=== PATIENT | female | born 1985 | race Caucasian/White ===

== ENCOUNTER → 2022-02-11 11:59 | Outpatient (CLI) | payer OTHER, SELFPAY ==
--- NOTE | 2022-02-11 12:10 | XR_ITS ---
FINAL REPORT CLINICAL HISTORY: LUMBAR RADICULOPATHY, LUMBAR REGION FINDINGS: LUMBAR SPINE. Three views demonstrate no acute fracture. There is 40% loss of height of the L1 vertebra anteriorly. There are small osteophytes posteriorly at L1-2. There is no malalignment. IMPRESSION: Loss of anterior height of the L1 vertebra with small osteophytes as above. Reviewed, Interpreted and Dictated by Severiano Alvarez MD Transcribed by Cely Laws Authenticated and [facility]
== END ==
PROVIDERS: Visit Provider Nurse Practitioner Family
DX: M54.16 Radiculopathy, lumbar region (principal)
CPT/HCPCS: 72100

== ENCOUNTER → 2022-04-25 12:02 | Outpatient (CLI) | payer OTHER, SELFPAY ==
[2022-04-25 12:58] LABS: Basophils # 0.1 K/mm3 (0-0.2); Basophils % 0.9 % (0.1-2.0); Eosinophils # 0.3 K/mm3 (0.0-0.4); Eosinophils % 3.5 % (0.1-12.0); Hematocrit 43.7 % (37.0-47.0); Hemoglobin 14.4 g/dL (12.2-16.2); Lymphocytes # 1.8 K/mm3 (0.7-4.5); Lymphocytes % 21.1 % (10-50); Mean Corpuscular Hemoglobin 28.3 pg (27.0-31.2); Mean Corpuscular Volume 85.9 fl (81-99); Monocytes # 0.4 K/mm3 (0.1-1.0); Monocytes % 4.9 % (1.7-9.3); Neutrophils # 5.8 K/mm3 (1.8-7.8); Neutrophils % 69.6 % (37.0-80.0); Platelet Count 310 K/mm3 (142-424); Red Blood Count 5.08 M/mm3 (4.20-5.40); Red Cell Distribution Width 14.2 % (11.5-17.5); White Blood Count 8.4 K/mm3 (4.8-10.8)
[2022-04-25 13:41] LABS: Chloride 103 mmol/L (98-107); Sodium 138 mmol/L (136-145)
[2022-04-25 13:42] LABS: Potassium 4.4 mmoL/L (3.5-5.1)
[2022-04-25 13:44] LABS: Alanine Aminotransferase 34 U/L (12-78); Alkaline Phosphatase 105 U/L (38-126); Amylase 61 U/L (30-110); Anion Gap 16.4 mEq/L (5-15); Aspartate Amino Transferase 47 U/L (14-36); Bilirubin,Total 0.6 mg/dl (0.2-1.3); Blood Urea Nitrogen 5 mg/dl (7-17); Calcium 8.8 mg/dl (8.4-10.2); Carbon Dioxide 23 mmol/L (22.0-30.0); Estimated Glomerular Filt Rate 94 ml/min (>60); GFR (African American) 113 ML/MIN (>60); Glucose 91 mg/dl (74-100); Lipase 81 U/L (23-300)
[2022-04-25 13:45] LABS: Albumin Level 4.3 g/dl (3.5-5.0); Albumin/Globulin Ratio 1.3 (1.1-1.8); Globulin 3.2 g/dL (1.3-3.2); Total Protein,Serum 7.5 g/dl (6.3-8.2)
== END ==
PROVIDERS: PCP Nurse Practitioner Family; Visit Provider Nurse Practitioner Family
DX: R10.10 Upper abdominal pain, unspecified (principal); R19.7 Diarrhea, unspecified
CPT/HCPCS: 36415; 80053; 82150; 83690; 85025

== ENCOUNTER → 2022-09-24 10:58 | Outpatient (POV) | payer OTHER, SELFPAY ==
[2022-09-24 12:01] VITALS: BP 156/89; PULSE 86; RESP 18; O2SAT 98; BMI 42.3
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
== END ==
PROVIDERS: PCP Internal Medicine Adolescent Medicine; Visit Provider Nurse Practitioner Family
DX: M54.16 Radiculopathy, lumbar region (principal); M54.2 Cervicalgia; M54.50 Low back pain, unspecified; Z79.899 Other long term (current) drug therapy
CPT/HCPCS: 99202; G0463

== ENCOUNTER 2022-10-20 11:02 | Day surgery (SDC) | payer OTHER, SELFPAY ==
[2022-10-20 11:18] VITALS: BP 158/94; PULSE 106; RESP 18; TEMP 36.1; O2SAT 96; BMI 42.2
[2022-10-20 11:56] VITALS: BP 153/99; PULSE 92; RESP 18; O2SAT 97
[2022-10-20 11:57] VITALS: BP 153/99; PULSE 92; RESP 18; O2SAT 97
[2022-10-20 12:10] VITALS: BP 142/84; PULSE 83; RESP 18; O2SAT 96
--- NOTE | 2022-10-20 12:41 | P.PCN_ITS ---
Procedure Date: 10/20/22 Time: 11:50 Anesthesiologist:: Darian Mann CRNA Complications:: None Pre-procedure Diagnosis:: Degenerative disc disease cervical spine multilevels. Cervical radiculopathy Post-procedure Diagnosis:: Same Indications for Procedure:: This patient is a pleasant 37-year-old female comes our clinic today for her initial cervical epidural steroid injection with us. Patient has had cervical epidural steroid injection in the past with 4 to 6 weeks of moderate relief in her cervical neck pain as well as bilateral shoulder and arm radicular symptoms. She rates her pain 02/08 Procedure Details:: Procedure:Cervical epidural steroid injection Informed consent was obtained and the risks and benefits of the procedure were explained to the patient. The patient was taken to the procedure room and noninvasive monitors placed, including noninvasive blood pressure cuff and pulse oximeter. The neck was prepped using Chloraprep as a cleansing solution. The C6- C7 interspace was viewed using fluroscopy. The skin and subcutaneous tissues were anesthetized using lidocaine 1.5% and a 25-gauge needle. After this an 18- gauge Touhy epidural needle was placed into the C6-C7 interspace under fluroscopy guidance and advanced using loss of resistance to air until the epidural space was encountered. After confirmation of needle placement in the epidural space using contrast dye, a solution containing normal saline, 2 mL and Depo-Medrol 80 mg was incrementally injected into the cervical epidural space.~ The patient tolerated the procedure well with no complications. The patient was observed in the Pain Clinic and then discharged home neurologically intact. Plan and Disposition:: Patient was discharged without incident.
== END 2022-10-20 12:10 | disposition home or self-care (01) ==
LOC: SC.PAINP 11:04
PROVIDERS: PCP Internal Medicine Adolescent Medicine; Visit Provider Nurse Anesthetist, Certified Registered
DX: M50.123 Cervical disc disorder at C6-C7 level with radiculopathy (principal)
CPT/HCPCS: 62321; J1040; Q9966

== ENCOUNTER → 2022-11-26 11:33 | Outpatient (POV) | payer OTHER, SELFPAY ==
[2022-11-26 11:44] VITALS: BP 145/91; PULSE 93; RESP 18; O2SAT 98; BMI 40.8
--- NOTE | 2022-11-26 11:53 | EXP.PAIN.SOA ---
[facility] Pain Management SOAP Note Subjective:: Patient is a pleasant 37-year-old female who presents today for follow-up of cervical epidural steroid injection at C6-C7 on 10/20/2022. We are currently treating the patient for degenerative disc disease of cervical spine multilevels with cervical radiculopathy symptoms, low back pain. Today she rates her pain a 3 out of 10.? She states she has had at least 75% improvement following this injection in her neck and feels like it still continuing to provide relief. She does state that she now notices that her low back pain is more bothersome. She does describe this as a aching, throbbing sensation that is worse with increased activity.? She states her back pain is worse with lifting or going upstairs or motions such as bending and twisting.? Her pain affects her ability to perform activities of daily living such as cooking or cleaning or doing activities around her home such as working on her chicken coop.? she has tried heat and ice along with Voltaren with little improvement.? She does use Tylenol and meloxicam with some improvement. She has had recent physical therapy however minimal relief was given. Patient is currently managed with gabapentin 300 mg 3 times a day from her primary care doctor's office.? Patient denies any side effects from this medication.? Her Aroldo is [id number].? Its been reviewed and appropriate. Review of Systems: General: No recent weight changes, no fever, no sleep disturbances Respiratory: No cough, no shortness of air, no recurring pulmonary infections Cardiovascular/peripheral vascular: No chest pain, no palpitations, no edema, no shortness of breath Gastrointestinal: No new onset incontinence, normal bowel movements reported Genitourinary: No new onset incontinence Musculoskeletal: Low back pain Psychiatric: [Normal mood/affect] Neurological: [Denies weakness in extremities], [denies balance issues] Objective:: Physical Exam: General: Alert and oriented x3, no acute distress, pleasant and cooperative Lungs: Respirations even and unlabored, symmetrical chest expansion Eyes: PERRL Musculoskeletal: Flexion and extension of lumbar [spine] somewhat guarded secondary to pain, [antalgic gait noted] positive Kemps test Neurological: Speech clear, no gross sensory deficit [facility] imaging 07/04/2022 MR lumbar spine without contrast L1-2: Mild disc space narrowing, disc desiccation, anterior spurring, and a circumferential disc bulge, mild kyphosis, a small posterior annular fissure, Schmorl's nodes and minimal marrow reaction are present. No spinal stenosis or neural foraminal encroachment. L2-3 and L3-4: Negative L4-5: Mild disc space narrowing, disc desiccation, posterior annular fissure, circumferential disc bulge, mild facet hypertrophy are present. Mild bilateral neural foraminal narrowing with minimal narrowing of the thecal sac L5-S1: L5 has a transitional characteristics and therefore, mild disc space narrowing is present. No paravertebral soft tissue mass Assessment:: Degenerative disc disease of cervical and lumbar spine with cervical and lumbar radiculopathy symptoms, lumbar facet arthropathy Plan:: Patient is experiencing significant pain in her low back with limited range of motion. She had a positive Kemps test and cannot tolerate activities such as bending, twisting and lifting. I have discussed with the patient that she may benefit from a medial branch block of her lumbar spine. Risk and benefits were discussed with the patient and she would like to proceed forward with this plan of care. Patient is not on any blood thinners. Patient will be scheduled for a medial branch block of her lumbar spine bilaterally of L1-2 and L4-5. Patient has been instructed to contact the clinic with any concerns before the next appointment. Dr. Webber has reviewed this note and agrees with this plan of care. This note was dictated using voice recognition software and make contain errors or omis
== END ==
PROVIDERS: PCP Internal Medicine Adolescent Medicine; Visit Provider Nurse Practitioner Family
DX: M50.123 Cervical disc disorder at C6-C7 level with radiculopathy (principal); M51.16 Intervertebral disc disorders with radiculopathy, lumbar region; M47.26 Other spondylosis with radiculopathy, lumbar region
CPT/HCPCS: 99212; G0463

== ENCOUNTER → 2023-01-13 11:26 | Outpatient (POV) | payer OTHER, SELFPAY ==
--- NOTE | 2023-01-13 12:10 | EXP.PAIN.SOA ---
[facility] Pain Management SOAP Note Subjective:: Patient is a pleasant 37-year-old female who presents today for follow-up. We are currently treating the patient for degenerative disc disease of cervical and lumbar spine with cervical and lumbar radiculopathy symptoms, low back pain, lumbar facet arthropathy. Today she rates her pain a 5 out of 10. She states that she still has gotten some improvement of her cervical epidural that she had back in September however she has noticed worsening pain into her low back. She states from our last visit she had to reschedule her injection and it is been moved to later this month. Patient denies any new trauma or injury. Patient denies any change location or type of pain she experiences. Patient does state her pain is an aching, throbbing sensation that is worse with increased activity and does affect her ability perform activities of daily living such as cooking and cleaning. Her Aroldo is pending. She is currently managed with gabapentin 300 mg 3 times a day from her primary care doctor. She does continue to use Tylenol and meloxicam along with heat and ice and Voltaren with some improvement. Review of Systems: General: No recent weight changes, no fever, no sleep disturbances Respiratory: No cough, no shortness of air, no recurring pulmonary infections Cardiovascular/peripheral vascular: No chest pain, no palpitations, no edema, no shortness of breath Gastrointestinal: No new onset incontinence, normal bowel movements reported Genitourinary: No new onset incontinence Musculoskeletal: Low back pain Psychiatric: [Normal mood/affect] Neurological: [Denies weakness in extremities], [denies balance issues] Objective:: Physical Exam: General: Alert and oriented x3, no acute distress, pleasant and cooperative Lungs: Respirations even and unlabored, symmetrical chest expansion Eyes: PERRL Musculoskeletal: Flexion and extension of lumbar [spine] somewhat guarded secondary to pain, [antalgic gait noted] Neurological: Speech clear, no gross sensory deficit Assessment:: Degenerative disc disease of cervical and lumbar spine with cervical and lumbar radiculopathy symptoms, low back pain, lumbar facet arthropathy Plan:: Patient continues to have significant pain in her low back with limited range of motion. Patient is already scheduled for a lumbar medial branch block of L1-L2 and L4-L5 bilaterally at the end of this month. Patient will follow back up in clinic after these injections. Patient has been instructed to contact the clinic with any concerns before the next appointment. Dr. Webber has reviewed this note and agrees with this plan of care. This note was dictated using voice recognition software and make contain errors or omissions. [facility] Disclaimer: The information contained in this section may have been updated after the patient was seen, as this information can be updated by other users. Medical History Anxiety Depression Uterine fibroid Family History (Updated 10/20/22 @ 11:20 by Melissa Cox RN) Other No significant family history Social History Smoking Status: Current every day smoker alcohol intake: never current occupational status: employed Travel in the last 8 weeks: None
[2023-01-13 12:22] VITALS: BP 143/101; PULSE 85; RESP 18; TEMP 36.6; O2SAT 97; BMI 40.6
== END ==
PROVIDERS: PCP Internal Medicine Adolescent Medicine; Visit Provider Nurse Practitioner Family
DX: M51.16 Intervertebral disc disorders with radiculopathy, lumbar region (principal); M50.10 Cervical disc disorder with radiculopathy, unspecified cervical region; M47.26 Other spondylosis with radiculopathy, lumbar region
CPT/HCPCS: 99212; G0463

== ENCOUNTER 2023-01-26 14:34 | Day surgery (SDC) | payer OTHER, SELFPAY ==
[2023-01-26 14:42] VITALS: BP 148/99; PULSE 95; RESP 18; O2SAT 97; BMI 41.8
[2023-01-26 14:46] VITALS: BP 179/100; PULSE 93; RESP 18; O2SAT 97
[2023-01-26 14:49] VITALS: BP 179/100; PULSE 93; RESP 18; O2SAT 97
--- NOTE | 2023-01-26 14:57 | P.PCN_ITS ---
Procedure Date: 01/26/23 Time: 14:45 Anesthesiologist:: Darian Mann CRNA Complications:: None Pre-procedure Diagnosis:: Degenerative disc disease lumbar spine multilevels. Multilevel lumbar facet arthropathy. Multilevel spondylosis. Lumbar radiculopathy Post-procedure Diagnosis:: Same Indications for Procedure:: Patient is a very pleasant 37-year-old female comes our clinic today for lumbar medial branch blocks/facet block L1-2 bilaterally as well as L4-5 bilaterally. Patient has low back pain she describes as constant, dull, aching. Patient has difficulty with flexion, extension, left and right rotation. Procedure Details:: Informed consent was obtained and the risk and benefits of the procedure was explained to the patient. Patient was taken to the procedure room where noninvasive monitors were placed, including noninvasive blood pressure cuff as well as pulse oximeter. The area over the lumbar spine was cleansed using chlorhexidine as a cleansing solution. I anesthetized the skin and subcutaneous tissues with 1% Lidocaine. I placed 22-gauge spinal needles into the facet joint/ medial branches of L1-2, L4-L5, bilaterally. Needle placement was confirmed with fluoroscopy. After confirmation of needle placement, each site was injected with 1 mL of 1% lidocaine and 0.25 % Marcaine and 10 mg of Depo- Medrol. A total of 80 mg of depo medrol was used for bilateral medial branch blocks of L1-2, L4-L5 bilaterally. Patient tolerated the procedure without difficulty. There were no complications. Plan and Disposition:: Patient was discharged without incident.
[2023-01-26 15:07] VITALS: BP 157/99; PULSE 88; RESP 16; O2SAT 97
== END 2023-01-26 15:07 | disposition home or self-care (01) ==
PROVIDERS: PCP Internal Medicine Adolescent Medicine; Visit Provider Nurse Anesthetist, Certified Registered
DX: M47.896 Other spondylosis, lumbar region; M51.16 Intervertebral disc disorders with radiculopathy, lumbar region
CPT/HCPCS: 64494; 64493

== ENCOUNTER → 2023-03-13 09:54 | Outpatient (CLI) | payer OTHER, SELFPAY ==
[2023-03-13 10:33] LABS: Basophils % 0.5 % (0.1-2.0); Eosinophils # 0.3 K/mm3 (0.0-0.4); Eosinophils % 3.4 % (0.1-12.0); Hematocrit 41.2 % (37.0-47.0); Hemoglobin 13.2 g/dL (12.2-16.2); Lymphocytes # 2.3 K/mm3 (0.7-4.5); Lymphocytes % 28.3 % (10-50); Mean Corpuscular HGB Conc 32.1 g/dL (31.8-35.4); Mean Corpuscular Hemoglobin 28.3 pg (27.0-31.2); Mean Corpuscular Volume 88.1 fl (81-99); Mean Platelet Volume 8.7 fl (7.4-10.4); Monocytes # 0.4 K/mm3 (0.1-1.0); Monocytes % 4.7 % (1.7-9.3); Neutrophils # 5.1 K/mm3 (1.8-7.8); Platelet Count 284 K/mm3 (142-424); Red Blood Count 4.68 M/mm3 (4.20-5.40); Red Cell Distribution Width 13.3 % (11.5-17.5); White Blood Count 8.2 K/mm3 (4.8-10.8)
[2023-03-13 10:55] LABS: Alanine Aminotransferase 33 U/L (12-78); Albumin Level 4.1 g/dl (3.5-5.0); Albumin/Globulin Ratio 1.2 (1.1-1.8); Alkaline Phosphatase 82 U/L (38-126); Anion Gap 13.7 mEq/L (5-15); Aspartate Amino Transferase 29 U/L (14-36); Bilirubin,Total 0.7 mg/dl (0.2-1.3); Blood Urea Nitrogen 8 mg/dl (7-17); Calcium 8.9 mg/dl (8.4-10.2); Carbon Dioxide 23 mmol/L (22.0-30.0); Chloride 108 mmol/L (98-107); Chol/HDL Ratio 6.2 (1-3.5); Cholesterol 217 mg/dl (140-200); Estimated Glomerular Filt Rate 93 ml/min (>60); GFR (African American) 113 ML/MIN (>60); Globulin 3.3 g/dL (1.3-3.2); Glucose 93 mg/dl (74-100); HDL Cholesterol 35 mg/dl (40-60); Potassium 4.7 mmoL/L (3.5-5.1); Sodium 140 mmol/L (136-145); Total Protein,Serum 7.4 g/dl (6.3-8.2); Triglycerides 122 mg/dl (30-150); VLDL Cholesterol 24 mg/dL (0-40)
[2023-03-13 10:58] LABS: Hemoglobin A1C 5.4 % (4.0-6.0)
[2023-03-13 11:14] LABS: 25-OH Vitamin D, Total 32.3 ng/mL (30-100); T4 (Thyroxine) 10.6 ug/dl (5.53-11.0); Triiodothryronine (T3) Uptake 28 % (23.5-40.5)
[2023-03-13 11:28] LABS: Thyroid Stimulating Hormone 0.84 uIU/mL (0.465-4.68)
[2023-03-13 11:47] LABS: Vitamin B12 641 pg/mL (239-931)
[2023-03-14 08:10] LABS: FSH 2.9 mIU/mL (.); LH 5.5 mIU/mL (.)
== END ==
PROVIDERS: PCP Internal Medicine Adolescent Medicine; Visit Provider Internal Medicine Adolescent Medicine
DX: R53.81 Other malaise (principal); R53.83 Other fatigue; R23.2 Flushing; Z86.39 Personal history of other endocrine, nutritional and metabolic disease
CPT/HCPCS: 36415; 80053; 80061; 82306; 82607; 83001; 83002; 83036; 84436; 84443; 84479; 85025

== ENCOUNTER 2024-02-17 06:25 | Outpatient (CLI) | payer BC, SELFPAY ==
--- NOTE | 2024-02-17 06:43 | ECG_ITS ---
APPROVED REPORT Exam: Resting ECG HR:63 bpm ECG Measurements Heart Rate 63 AXES AZ 124 P 44 QRSd 89 QRS 54 QT 392 T -19 QTc 400 Conclusion SINUS RHYTHM LOW QRS VOLTAGE IN PRECORDIAL LEADS [QRS DEFLECTION < 1.0 mV IN CHEST LEADS] NONSPECIFIC ST & T-WAVE ABNORMALITY ABNORMAL ECG UNCONFIRMED REPORT Electronically signed by : Vinny Palumbo MD 02/19/2024 10:54:49
--- NOTE | 2024-02-17 06:53 | XR_ITS ---
FINAL REPORT CLINICAL HISTORY: PRE-OP..OBESITY COMPARISON: None FINDINGS: PA and lateral views of the chest are obtained. There is no prior exam for comparison. The cardiac and mediastinal silhouettes are within normal limits. The lungs are clear. There is no pleural effusion, pneumothorax, or acute osseous abnormality. IMPRESSION: No radiographic evidence of acute cardiac or pulmonary disease. Reviewed, Interpreted and Dictated by Muriel Khanna MD Transcribed by Sarah Harrison Authenticated and [facility]
== END 2024-02-17 23:59 | disposition home or self-care (01) ==
PROVIDERS: PCP Internal Medicine Adolescent Medicine; Visit Provider Clinical Nurse Specialist Adult Health
DX: Z01.818 Encounter for other preprocedural examination (principal); E66.01 Morbid (severe) obesity due to excess calories; Z68.41 Body mass index [BMI] 40.0-44.9, adult
CPT/HCPCS: 71046; 93005

== ENCOUNTER 2024-02-25 07:32 | Outpatient (CLI) | payer BC, SELFPAY ==
--- NOTE | 2024-02-25 07:38 | US_ITS ---
FINAL REPORT TECHNIQUE: Multiple transverse and longitudinal images CLINICAL HISTORY: PRE OP bariatric surg FINDINGS: The gallbladder shows no wall thickening, distention or stone disease. No biliary ductal dilatation is appreciated. No fluid collections are seen. There is fatty infiltration of the liver. Limited portions of the right kidney are unremarkable. IMPRESSION: Fatty liver. Reviewed, Interpreted and Dictated by J Luis Burton MD Transcribed by Cely Laws Authenticated and [facility]
== END 2024-02-25 23:59 | disposition home or self-care (01) ==
LOC: RAD 07:33
PROVIDERS: PCP Internal Medicine Adolescent Medicine; Visit Provider Clinical Nurse Specialist Adult Health
DX: Z01.818 Encounter for other preprocedural examination (principal); E66.01 Morbid (severe) obesity due to excess calories; Z68.41 Body mass index [BMI] 40.0-44.9, adult
CPT/HCPCS: 76705